=== PATIENT | female | born 1980 | race Caucasian/White ===

== ENCOUNTER 2018-11-12 06:55 | Inpatient (IN) | payer MEDICAID ==
[2018-11-12] MEDS: LACTATED RINGER'S 1,000 ML IV ×2 (07:41→15:41)
[2018-11-12] MEDS: LACTATED RINGER'S 1,000 ML IV* ×3 (07:59→23:59)
[2018-11-12] MEDS ORDERED: WITCH HAZEL/GLYCERIN PAD PR (08:00)
[2018-11-12] MEDS ORDERED: NA PHOSPHATE/BIPHOS 133 ML ENEMA PR (08:00)
[2018-11-12] MEDS ORDERED: SENNA/DOCUSATE NA (8.6MG/50MG) TAB PO (08:00)
[2018-11-12] MEDS ORDERED: DIBUCAINE 1% 30 GM OINT TOP (08:00)
[2018-11-12] MEDS ORDERED: MAGNESIUM HYDROXIDE 30ML CUP PO (08:00)
[2018-11-12] MEDS ORDERED: DIPHENHYDRAMINE 50 MG INJ IV (08:00)
[2018-11-12] MEDS ORDERED: ONDANSETRON 4 MG INJ IV (08:00)
[2018-11-12] MEDS ORDERED: ONDANSETRON 4 MG TAB PO (08:00)
[2018-11-12] MEDS ORDERED: DIPHENHYDRAMINE 25 MG CAP PO (08:00)
[2018-11-12] MEDS ORDERED: MISOPROSTOL 200 MCG TAB PR ×2 (08:00)
[2018-11-12] MEDS ORDERED: HYDROCODONE/APAP (5/325) TAB PO ×2 (08:00)
[2018-11-12] MEDS ORDERED: BENZOCAINE 20% 56 ML SPRAY TOP (08:00)
[2018-11-12] MEDS ORDERED: CARBOPROST 250 MCG INJ IM ×2 (08:00)
[2018-11-12] MEDS ORDERED: LANOLIN HPA 1 PKT TOP (08:00)
[2018-11-12] MEDS ORDERED: METHYLERGONOVINE 0.2 MG INJ IM (08:00)
[2018-11-12] MEDS ORDERED: IBUPROFEN 600 MG TAB PO (08:00)
[2018-11-12] MEDS ORDERED: OXYTOCIN 30 UNITS/LR 500 ML IV (08:00)
[2018-11-12] MEDS: OXYTOCIN 30 UNITS/LR 500 ML IV ×3 (08:10→11:21)
[2018-11-12] MEDS: IBUPROFEN 600 MG TAB PO ×3 (08:28→23:41)
[2018-11-12 08:32] LABS: ADD MAN DIFF? NO
[2018-11-12 08:40] LABS: BASOPHILS % 0.2 % (0.0-2.0); EOSINOPHILS % 0.2 % (0.0-7.0); HEMATOCRIT 31.1 % (37.0-47.0); LYMPHOCYTES # 1.5 10^3/ul (0.8-2.9); LYMPHOCYTES % 12.9 % (15.0-51.0); MEAN CORPUSCULAR HEMOGLOBIN 27.4 pg (29.0-33.0); MEAN CORPUSCULAR HGB CONC 32.2 g/dl (32.0-37.0); MEAN CORPUSCULAR VOLUME 85.2 fl (82.0-101.0); MEAN PLATELET VOLUME 10.6 fl (7.4-10.4); MONOCYTE # 0.6 10^3/ul (0.3-0.9); MONOCYTES % 4.8 % (0.0-11.0); NEUTROPHIL # 9.6 10^3/ul (1.6-7.5); NEUTROPHILS % 81.5 % (39.0-77.0); PLATELET COUNT 346 10^3/UL (140-415); RED BLOOD COUNT 3.65 10^6/ul (4.20-5.40); RED CELL DISTRIBUTION WIDTH 15.1 % (11.5-14.5)
[2018-11-12 08:40] LABS: WHITE BLOOD COUNT 11.7 10^3/ul (4.8-10.8)
[2018-11-12 08:58] LABS: INR 0.89; PROTIME 12.1 Sec (11.9-14.9); PT RATIO 0.9
[2018-11-12 08:59] LABS: PARTIAL THROMBOPLASTIN TIME 29.1 Sec (23.0-35.0)
[2018-11-12] MEDS: SENNA/DOCUSATE NA (8.6MG/50MG) TAB PO ×2 (09:00→23:40)
[2018-11-12] MEDS: LIDOCAINE 1% (MPF) 30 ML INJ INJ (09:01)
[2018-11-12 09:18] LABS: ALANINE AMINOTRANSFERASE 13 IU/L (13-69); ALBUMIN 3.5 g/dl (3.3-4.9); ALBUMIN/GLOBULIN RATIO 1.06; ALKALINE PHOSPHATASE 294 IU/L (42-121); ANION GAP 11 (5-13); ASPARTATE AMINO TRANSFERASE 21 IU/L (15-46); BILIRUBIN,INDIRECT 1.1 mg/dl (0-1.1); BILIRUBIN,TOTAL 1.1 mg/dl (0.2-1.3); BLOOD UREA NITROGEN 11 mg/dl (7-20); CALCIUM 8.8 mg/dl (8.4-10.2); CARBON DIOXIDE 22 mmol/L (21-31); CHLORIDE 106 mmol/L (97-110); CREATININE 0.74 mg/dl (0.44-1.00); Estimated GFR > 60 mL/min (>60); GLUCOSE 106 mg/dl (70-220); POTASSIUM 3.9 mmol/L (3.5-5.1); SODIUM 139 mmol/L (135-144); TOTAL PROTEIN 6.8 g/dl (6.1-8.1)
[2018-11-12 09:29] LABS: HEPATITIS B SURFACE ANTIGEN NEGATIVE (NEGATIVE)
[2018-11-12 09:38] LABS: HIV 1&2 ANTIBODY NEGATIVE (NEGATIVE)
[2018-11-12 11:26] LABS: AMPHETAMINE/METHAMPHETAMINE Negative (NEGATIVE); BARBITURATES Negative (NEGATIVE); BENZODIAZEPINES Negative (NEGATIVE); COCAINE Negative (NEGATIVE); OPIATES Negative (NEGATIVE)
[2018-11-12 11:39] LABS: CANNABINOIDS Negative (NEGATIVE)
[2018-11-12 22:43] LABS: RAPID PLASMA REAGIN NONREACTIVE (NR)
[2018-11-13] MEDS: LACTATED RINGER'S 1,000 ML IV ×2 (00:42→07:41)
[2018-11-13] MEDS: IBUPROFEN 600 MG TAB PO ×2 (06:00→12:35)
[2018-11-13 07:51] LABS: ADD MAN DIFF? NO
[2018-11-13 07:54] LABS: WHITE BLOOD COUNT 8.8 10^3/ul (4.8-10.8)
[2018-11-13 07:54] LABS: BASOPHILS % 0.3 % (0.0-2.0); EOSINOPHILS # 0.1 10^3/ul (0.0-0.5); EOSINOPHILS % 0.6 % (0.0-7.0); HEMATOCRIT 24.4 % (37.0-47.0); HEMOGLOBIN 7.7 g/dl (12.0-16.0); LYMPHOCYTES # 2.8 10^3/ul (0.8-2.9); LYMPHOCYTES % 32.2 % (15.0-51.0); MEAN CORPUSCULAR HEMOGLOBIN 26.9 pg (29.0-33.0); MEAN CORPUSCULAR HGB CONC 31.6 g/dl (32.0-37.0); MEAN CORPUSCULAR VOLUME 85.3 fl (82.0-101.0); MEAN PLATELET VOLUME 10.1 fl (7.4-10.4); MONOCYTE # 0.5 10^3/ul (0.3-0.9); MONOCYTES % 5.9 % (0.0-11.0); NEUTROPHIL # 5.3 10^3/ul (1.6-7.5); NEUTROPHILS % 60.7 % (39.0-77.0); PLATELET COUNT 298 10^3/UL (140-415); RED BLOOD COUNT 2.86 10^6/ul (4.20-5.40)
[2018-11-13] MEDS: SENNA/DOCUSATE NA (8.6MG/50MG) TAB PO (09:00)
[2018-11-13 10:21] LABS: RUBELLA ANTIBODY - IGM <20.00 AU/mL
[2018-11-13 20:33] LABS: RUBELLA ANTIBODY - IGG <0.90 index
[2018-11-14] MEDS ORDERED: MEASLES,MUMPS,RUBELLA VACCINE INJ SC* (09:00)
[2018-11-14] MEDS ORDERED: VARICELLA VACCINE LIVE/PF 1,350 UNIT/0.5 ML ML SC* (09:00)
[2018-11-14] MEDS ORDERED: DIPHTH/TET/ACEL PERTUSS (ADULT) 0.5 ML VIAL IM* (09:00)
== END 2018-11-13 15:45 | disposition home or self-care (01) | DRG 807 ==
LOC: L-D 06:55 → PP1 17:05
PROC: 10E0XZZ Delivery of Products of Conception, External Approach (ICD-10-PCS; principal; 2018-11-12)
PROC: 0HQ9XZZ Repair Perineum Skin, External Approach (ICD-10-PCS; 2018-11-12)
DX: O62.3 Precipitate labor (principal); Z37.0 Single live birth; O70.0 First degree perineal laceration during delivery; Z3A.00 Weeks of gestation of pregnancy not specified
CPT/HCPCS: 80053; 80307; 85025; 85610; 85730; 86592; 86703; 86762; 86850; 86900; 86901; 87340